=== PATIENT | female | born 1975 | race Caucasian/White ===

== ENCOUNTER → 2017-10-06 | Day surgery (SDC) | payer BC, OTHER ==
[2017-09-28 14:25] VITALS: Ht 175.3 cm; Wt 122.7 kg
[~2017-10-06] VITALS: Ht 175.3 cm; Wt 122.7 kg
[~2017-10-06] MED LIST: DAPA1TAB6 PO; LIDOCAINE HCL 2% 2 ML VIAL (20MG/ML) ONE; LIRA18IN SC; LISI-725 PO; PRLSR20 PO; PROPOFOL IV EMULSION 10 MG/ML 20 ML VIAL ONE; SIMV20TA2 PO; SODIUM CHLORIDE 0.9% 500ML 500 ML IV ONE
--- NOTE | 2017-10-06 12:27 | Endo History and Physical ---
History & Physical Date of Service: Oct 06, 2017. Chief Complaint: Diarrhea, Nausea, Vomiting and Weight loss Referring Physician: Fidelia Kolb History of Present Illness 42 yo CF who presents for EGD and colonoscopy secondary to diarrhea, nausea, vomiting and weight loss. Past Surgical History Hx Cardiac Surgery: No Hx Internal Defibrillator: No Hx Pacemaker: No Hx Abdominal Surgery: Yes (ECTOPIC ) Hx of Implantable Prosthesis: No Hx Post-Op Nausea and Vomiting: No Hx Cancer Surgery: No Hx Thoracic Surgery: No Hx Orthopedic: No Hx Urinary Tract Surgery: No Family History Colon CA Social History Smoking Status: Never Smoker Hx Substance Use: No Hx Alcohol Use: Yes (RARELY) Allergies Coded Allergies: No Known Allergies (Unverified , 09/28/17) Current Medications Reported Home Medications Medications Dose Route/Sig Max Daily Dose Days Date Category Xigduo Xr 10-500 mg (Dapagliflozin-Metformin HCl) 1 Tab Tab 1 Tab PO HS 09/28/17 Reported Victoza (Liraglutide) 18 Mg/3 Ml Inj 1.8 Mg SC HS 09/28/17 Reported Zocor (Simvastatin) 20 Mg Tab 20 Mg PO QPM 09/28/17 Reported Prilosec (Omeprazole) 20 Mg Capcr 20 Mg PO DAILY 09/28/17 Reported Zestril (Lisinopril) 20 Mg Tab 20 Mg PO HS 09/28/17 Reported Vital Signs Weight (Kilograms): 122.73 Height (Feet): 5 Height (Inches): 9 Physical Exam General Appearance: WD/WN, no apparent distress Respiratory/Chest: Auscultation: breath sounds normal Cardiovascular: Heart Auscultation: RRR Abdomen: Bowel Sounds: normal Inspection & Palpation: soft, non-distended, no tenderness, guarding & rebound Assessment and Plan Assessment: 42 yo CF who presents for EGD and colonoscopy secondary to diarrhea, nausea, vomiting and weight loss. Plan: Proceed with EGD and colonoscopy.
--- NOTE | 2017-10-06 13:39 | Discharge Instructions ---
Endoscopy Patient Instructions Date / Procedure(s) Performed Oct 06, 2017. Colonoscopy, EGD Allergy Information Coded Allergies: No Known Allergies (Unverified , 09/28/17) Discharge Date / Findings Oct 06, 2017. EGD: Gastritis s/p biopsies, Distal esophageal biopsies Colonoscopy: Random colon biopsies, Stool studies collected Medication Instructions OK to resume all medications today as prescribed Reported Home Medications Medications Dose Route/Sig Max Daily Dose Days Date Category Xigduo Xr 10-500 mg (Dapagliflozin-Metformin HCl) 1 Tab Tab 1 Tab PO HS 09/28/17 Reported Victoza (Liraglutide) 18 Mg/3 Ml Inj 1.8 Mg SC HS 09/28/17 Reported Zocor (Simvastatin) 20 Mg Tab 20 Mg PO QPM 09/28/17 Reported Prilosec (Omeprazole) 20 Mg Capcr 20 Mg PO DAILY 09/28/17 Reported Zestril (Lisinopril) 20 Mg Tab 20 Mg PO HS 09/28/17 Reported Provider Instructions Activity Restrictions - No exercising or heavy lifting for 24 hours. - Do not drink alcohol the day of the procedure. - Do not drive a car or operate machinery until the day after the procedure. - Do not make any important decisions or sign important papers in 24 hours after the procedure. Following Day: - Return to full activity which may include returning to work/school. Diet Start your diet with liquids and light foods (jello, soup, juice, toast). Then eat your usual diet if not nauseated. Treatment For Common After Affects For mild abdominal pain, bloating, or excessive gas: - Rest - Eat lightly - Lie on right side Follow-Up Information Follow-up with Maryellen calix as scheduled Anesthesia Information What You Should Know You have had a procedure that required some medicine to reduce anxiety and discomfort. This treatment is called moderate sedation. After receiving the treatment, you may be sleepy, but you will be able to breathe on your own. The effects of the treatment may last for several hours. Follow these instructions along with Activity/Diet recommendations noted above: * Do NOT do anything where dizziness or clumsiness would be dangerous. * Rest quietly at home today, then you can be up and about tomorrow. * Have a responsible person stay with you the rest of today. * You may have had an I.V. today. If so, you may take the dressing off later today. Recommendations Call your doctor if: * Trouble breathing * Continuous vomiting for more than 24 hours * Temperature above 101 degrees * Severe abdominal pain or bloating * Pain not relieved by pain medicine ordered * There is increased drainage or redness from any incision * A large amount of rectal bleeding greater than 2-3 tablespoons. (If you had a polyp/s removed or have hemorrhoids, a small amount of blood - from the rectum is to be expected.) * You have any unanswered questions or concerns. IN THE EVENT OF A SERIOUS EMERGENCY, GO TO THE NEAREST EMERGENCY ROOM Your discharge instructions were prepared by provider Sd Parra. Patient Instructions Signature Page Tierra Loaiza Patient (or Guardian) Signature/Date: I have read and understand the instructions given to me by my caregivers. Caregiver/RN/Doctor Signature/Date: The above-named patient and/or guardian has received patient instructions on this date. + Original Patient Signature Page (only) stays with chart. Please make copy for patient.
--- NOTE | 2017-10-06 13:45 | GI REPORT ---
Patient Name: Tierra Loaiza Procedure Date: 10/06/2017 1:07 PM Date of : 1975 Admit Type: Outpatient Age: 42 Gender: Female Attending MD: Sd Parra DO Procedure: Colonoscopy Providers: dS Parra DO Referring MD: Fidelia Kolb Indications: Chronic diarrhea Medicines: Monitored Anesthesia Care Complications: No immediate complications. Estimated Blood Loss: Estimated blood loss: none. Procedure: Pre-Anesthesia Assessment: - Prior to the procedure, a History and Physical was performed, and patient medications and allergies were reviewed. The patient's tolerance of previous anesthesia was also reviewed. The risks and benefits of the procedure and the sedation options and risks were discussed with the patient. All questions were answered, and informed consent was obtained. Prior Anticoagulants: The patient has taken no previous anticoagulant or antiplatelet agents. ASA Grade Assessment: II - A patient with mild systemic disease. After reviewing the risks and benefits, the patient was deemed in satisfactory condition to undergo the procedure. After I obtained informed consent, the scope was passed under direct vision. Throughout the procedure, the patient's blood pressure, pulse, and oxygen saturations were monitored continuously. The Scope was introduced through the anus and advanced to the terminal ileum. The colonoscopy was performed without difficulty. The patient tolerated the procedure well. The quality of the bowel preparation was good. The terminal ileum, ileocecal valve, appendiceal orifice, and rectum were photographed. Findings: The perianal and digital rectal examinations were normal. The colon (entire examined portion) appeared normal. Several random biopsies were obtained with cold forceps for histology in the entire colon. Fluid aspiration for stool studies was performed. Impression: - The entire examined colon is normal. Fluid aspiration performed. - Several random biopsies were obtained in the entire colon. Recommendation: - Resume previous diet. - Continue present medications. - Await pathology results. - Return to primary care physician as previously scheduled. Sd Parra DO 10/06/2017 1:44:48 PM This report has been signed electronically. Note Initiated On: 10/06/2017 1:07 PM Number of Addenda: 0 I attest to the content of the Intraoperative Record and orders documented therein, exceptions below {[id number]}
--- NOTE | 2017-10-06 13:47 | GI REPORT ---
Patient Name: Tierra Loaiza Procedure Date: 10/06/2017 1:07 PM Date of : 1975 Admit Type: Outpatient Age: 42 Gender: Female Attending MD: Sd Parra DO Procedure: Upper GI endoscopy Providers: Sd Parra DO Referring MD: Fidelia Kolb Indications: Nausea with vomiting, Weight loss Medicines: Monitored Anesthesia Care Complications: No immediate complications. Estimated Blood Loss: Estimated blood loss: none. Procedure: Pre-Anesthesia Assessment: - Prior to the procedure, a History and Physical was performed, and patient medications and allergies were reviewed. The patient's tolerance of previous anesthesia was also reviewed. The risks and benefits of the procedure and the sedation options and risks were discussed with the patient. All questions were answered, and informed consent was obtained. Prior Anticoagulants: The patient has taken no previous anticoagulant or antiplatelet agents. ASA Grade Assessment: II - A patient with mild systemic disease. After reviewing the risks and benefits, the patient was deemed in satisfactory condition to undergo the procedure. After obtaining informed consent, the endoscope was passed under direct vision. Throughout the procedure, the patient's blood pressure, pulse, and oxygen saturations were monitored continuously. The scope was introduced through the mouth, and advanced to the second part of duodenum. The upper GI endoscopy was accomplished without difficulty. The patient tolerated the procedure well. Findings: The Z-line was irregular and was found 38 cm from the incisors. Biopsies were taken with a cold forceps for histology. Localized mild inflammation characterized by erosions was found in the gastric antrum. Biopsies were taken with a cold forceps for histology. The examined duodenum was normal. Impression: - Z-line irregular, 38 cm from the incisors. Biopsied. - Gastritis. Biopsied. - Normal examined duodenum. Recommendation: - Resume previous diet. - Continue present medications. - Await pathology results. - Return to primary care physician as previously scheduled. Sd Parra DO 10/06/2017 1:46:37 PM This report has been signed electronically. Note Initiated On: 10/06/2017 1:07 PM Number of Addenda: 0 I attest to the content of the Intraoperative Record and orders documented therein, exceptions below {[id number]}
[2017-10-06 14:06] VITALS: BP 132/78; PULSE 78; O2SAT 93
--- NOTE | 2017-10-06 14:19 | Anesthesiology Progress Note ---
Anesthesia Post Op Note Date & Time Oct 06, 2017 at 14:19 Vital Signs Pain Intensity: 0 Vital Signs Past 12 Hours Date Time Temp Pulse Resp B/P (MAP) Pulse Ox O2 Delivery O2 Flow Rate FiO2 10/06/17 14:06 78 18 132/78 (96) 93 Room Air 10/06/17 13:53 85 18 122/91 (101) 94 Room Air 10/06/17 13:38 88 18 108/59 (75) 95 Room Air 10/06/17 12:41 36.9 80 18 127/77 (94) 93 Room Air Notes Mental Status: alert / awake / arousable, participated in evaluation Pt Amnestic to Procedure: Yes Nausea / Vomiting: adequately controlled Pain: adequately controlled Airway Patency, RR, SpO2: stable & adequate BP & HR: stable & adequate Hydration State: stable & adequate Anesthetic Complications: no major complications apparent
== END | disposition home or self-care (01) ==
LOC: C.GI 11:44
PROVIDERS: ATTEND Internal Medicine
DX: R19.7 Diarrhea, unspecified (principal); R11.2 Nausea with vomiting, unspecified; R63.4 Abnormal weight loss; K29.70 Gastritis, unspecified, without bleeding; I10 Essential (primary) hypertension; E78.5 Hyperlipidemia, unspecified; K21.9 Gastro-esophageal reflux disease without esophagitis; E11.9 Type 2 diabetes mellitus without complications; F17.200 Nicotine dependence, unspecified, uncomplicated